=== PATIENT | male | born 1980 | race Caucasian/White ===

== ENCOUNTER 2018-06-12 13:00 | Outpatient (RCR) | payer MEDICAID | END 2018-06-12 13:30 | disposition home or self-care (01) | LOC: PT 13:00 | DX: S82.202H Unspecified fracture of shaft of left tibia, subsequent encounter for open fracture type I or II with delayed healing (principal); S82.402H Unspecified fracture of shaft of left fibula, subsequent encounter for open fracture type I or II with delayed healing; V29.9XXD Motorcycle rider (driver) (passenger) injured in unspecified traffic accident, subsequent encounter ==

== ENCOUNTER → 2018-06-25 | Outpatient (CLI) | payer MEDICAID | LOC: RAD 14:02 | DX: M89.8X5 Other specified disorders of bone, thigh (principal); Z87.828 Personal history of other (healed) physical injury and trauma; Z98.890 Other specified postprocedural states ==